=== PATIENT | male | born 2000 | race Caucasian/White ===

== ENCOUNTER 2020-07-11 14:27 | Outpatient (REF) | payer OTHER, SELFPAY ==
--- NOTE | 2020-07-11 14:44 | XR_ITS ---
EXAMINATION: XR SHOULDER, LEFT CLINICAL INFORMATION: Pain in left shoulder COMPARISON: None TECHNIQUE: AP, transscapular, transaxillary radiographs of the left shoulder FINDINGS: Glenohumeral and acromioclavicular joint spacing and alignment are normal in appearance. No arthropathic changes, dystrophic calcifications or fractures are identified. The visualized left ribs and lung are normal in appearance. XR/XR shoulder LT min 2V IMPRESSION: Normal left shoulder.
== END 2020-07-11 14:28 | disposition home or self-care (01) ==
LOC: HO.HOSX 14:27
PROVIDERS: Visit Provider Physician Assistant
DX: M25.512 Pain in left shoulder (principal)
CPT/HCPCS: 73030

== ENCOUNTER → 2020-08-01 13:54 | Outpatient (BNVA) | payer OTHER, SELFPAY | PROVIDERS: Visit Provider Physician Assistant ==

== ENCOUNTER → 2024-12-07 15:07 | Outpatient (BNVA) | payer OTHER, SELFPAY | PROVIDERS: Visit Provider Physician Assistant Medical | DX: S83.91XA Sprain of unspecified site of right knee, initial encounter (principal); W01.198A Fall on same level from slipping, tripping and stumbling with subsequent striking against other object, initial encounter | CPT/HCPCS: 73564; 99204 ==

== ENCOUNTER → 2024-12-11 10:20 | Outpatient (BNVA) | payer OTHER, SELFPAY | PROVIDERS: Visit Provider Internal Medicine | DX: M23.91 Unspecified internal derangement of right knee (principal); S83.91XA Sprain of unspecified site of right knee, initial encounter; W01.198A Fall on same level from slipping, tripping and stumbling with subsequent striking against other object, initial encounter | CPT/HCPCS: 99213 ==

== ENCOUNTER → 2024-12-18 11:17 | Outpatient (BNVA) | payer OTHER, SELFPAY | PROVIDERS: Visit Provider Internal Medicine | DX: M23.91 Unspecified internal derangement of right knee (principal) | CPT/HCPCS: 99213 ==

== ENCOUNTER → 2024-12-21 19:56 | Outpatient (BNV) | payer OTHER, SELFPAY | PROVIDERS: Visit Provider Specialist | DX: S83.271A Complex tear of lateral meniscus, current injury, right knee, initial encounter (principal) | CPT/HCPCS: 73721 ==

== ENCOUNTER 2024-12-21 19:57 | Outpatient (REF) | payer OTHER, SELFPAY ==
--- NOTE | ~2024-12-21 | MR_ITS ---
CLINICAL HISTORY: PERSISTANT PAIN,TWISTING INJURY WHILE FALLING MR right knee without gadolinium Comparison: 12/07/2024 Findings: There is a tear of the lateral collateral ligament complex. There is meniscocapsular separation with a parameniscal cyst. No acute fracture or pathologic bone lesion. No joint effusion. No tears of the cruciate or medial collateral ligaments. No disruption of the patellar retinacula or iliotibial band. Quadriceps, patellar, popliteus, and flexor tendons are intact. There are no meniscal tears. IMPRESSION: 1. Lateral collateral ligament complex tear with associated meniscocapsular separation. This document has been electronically signed by: Silvestre Rios MD on 12/23/2024 08:43:00
== END 2024-12-21 19:58 | disposition home or self-care (01) ==
LOC: HO.MRI 19:57
PROVIDERS: Visit Provider Internal Medicine
DX: M25.561 Pain in right knee (principal); S83.91XA Sprain of unspecified site of right knee, initial encounter
CPT/HCPCS: 73721

== ENCOUNTER → 2025-01-01 10:15 | Outpatient (BNVA) | payer OTHER, SELFPAY | PROVIDERS: Visit Provider Internal Medicine | DX: S83.91XA Sprain of unspecified site of right knee, initial encounter (principal); W01.198A Fall on same level from slipping, tripping and stumbling with subsequent striking against other object, initial encounter | CPT/HCPCS: 99213 ==

== ENCOUNTER 2025-01-24 09:39 | Outpatient (AMB) | payer OTHER, SELFPAY ==
--- NOTE | 2025-01-24 09:47 | A.OFFVIS_ITS ---
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 Patient was referred by work connection status post fall and twisting of knee injury. He has been attending physical therapy. Due to his persistent pain an MRI was ordered and obtained. Patient reports that he has completed physical therapy. His pain presents with bending motions such as squatting. He returned back to work today with sedentary restrictions. IMPRESSION: 1. Lateral collateral ligament complex tear with associated meniscocapsular separation. 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 He states he fell and twisted the knee. He was seen by the work connection and they obtained x-rays and sent him for an MRI. He states he also attended physical therapy and completed the therapy and feels there were significant improvement. He denies instability. He denies any locking or catching. He states the work connection did release him to return to work today on sedentary duties. 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 There is no swelling. He has full range of motion without crepitus. No joint line tenderness present. Negative Kathleen's. Negative Jaquan's. Negative dial test. Neurovascularly intact. Results Reviewed Results Reviewed: MRI right knee IMPRESSION: 1. Lateral collateral ligament complex tear with associated meniscocapsular separation. Assessment & Plan Assessment & Plan (1) Tear of LCL (lateral collateral ligament) of knee: Code(s): S83.429A - Sprain of lateral collateral ligament of unspecified knee, initial encounter Category: Medical Plan: We had a lengthy discussion about his injury and treatment options. Given he has no instability and is able to perform most activities without discomfort we will treat this conservatively with continued physical therapy for strength training and proprioceptive training/conditioning. Our goal is to get him back to work without restrictions. At this time he will return with no lifting pushing pulling or carrying greater than 5-10 lb. Limit stair climbing. I explained to the patient if there is any symptoms he begins to experience where it is sharp shooting pain with twisting or pivoting or catching and locking he needs to contact our office to discuss this further if it is limiting his ability to perform daily activities. Otherwise the patient will see us back as needed. Orders: Orders PT Evaluation and Treatment Today S83.429A - Sprain of lateral collateral ligament of unspecified knee, initial encounter Coding Level of Care Code Est Pt Level 3 (97184) Complex EM visit Add On G2211 Diagnoses Tear of LCL (lateral collateral ligament) of knee S83.429A
--- OUTSIDE RECORDS SUMMARY | 2025-01-24 10:11 | XMS_ITS | Continuity of Care Document ---
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 It does not include entries that were removed or entered in error. Problem Status Onset Date Problem Type Date of Resolution Comments Source Exposure to potentially hazardous substance Active Condition Sep 23, 2023 Entered By: BELLA GOMEZ Comment: DYLAN screening Snomed code connected 11/05/22 [place] [facility] [place] [facility] Major depressive disorder [facility] [place] [facility] Allergies, Adverse Reactions, Alerts Combined list of allergies from Department of Defense and Veterans Affairs facilities. It does not include entries that were removed or entered in error. Substance Category Reaction Severity Reaction type Status Date Reported Comments Source No Known Allergies Drug allergy (disorder) active 05/03/2018 [facility] [place] Immunizations Combined list of available immunizations from the Department of Defense and Veterans Affairs facilities. Immunization Series Date Given Administered By Site Reaction Lot Number CVX Code Drug Educational Coordinator Status Comments Source HPV9 1 2022 ANAIS WU LEFT DELTO ID [id number] complet ed [facility]MIN[facility]E [facility] [place] [facility] HEP A, ADULT 2 2019 52 complet ed HISTORICA L INFORMATI ON - [facility], [facility] hepatitis A vaccine, adult dosage 0 2019 52 () Not Given hepatitis A vaccine, adult dosage [facility] Influenza, injectable, quadrivalent, preservative free 0 2018 [id number] 150 Seqirus (SEQ) complet ed Influenza , injectabl e, quadrival ent, preservat ilene free DoD ANTHRAX 6 2018 24 complet ed HISTORICA L INFORMATI ON - FROM OTHER [facility], [facility] anthrax vaccine 7 2018 UNK 24 [employer]gent [employer] [place] ([facility]) complet ed anthrax vaccine DoD TYPHOID, VICPS 2018 LEFT ARM 101 complet ed HISTORICA L INFORMATI ON - FROM OTHER REGISTRY, JLV Lot#: [id number] Mfr: SANOFI PASTEUR [facility] HEP A, ADULT 1 2018 52 complet ed HISTORICA L INFORMATI ON - FROM OTHER REGISTRY, JLV Lot#: [id number] Mfr: [employer] [facility] hepatitis A vaccine, adult dosage 1 2018 JACQUELYN HUBER [id number] Merck (MSD) complet ed hepatitis A vaccine, adult dosage DoD typhoid Vi capsular polysaccharid e vaccine 1 2018 JACQUELYN HUBER [id number] Sanofi Pasteur ([facility]) complet ed typhoid Vi capsular polysacch aride vaccine DoD M/R 2 2018 04 complet ed HISTORICA L INFORMATI ON - FROM OTHER REGISTRY, JLV [facility] measles and rubella virus vaccine 0 2018 04 () Not Given measles and rubella virus vaccine DoD Influenza, injectable, quadrivalent, preservative free 0 2017 [id number] 150 SmithKline (SKB) complet ed Influenza , injectabl e, quadrival ent, preservat ilene free DoD ANTHRAX 5 2017 24 complet ed HISTORICA L INFORMATI ON - FROM OTHER REGISTRY, JLV Lot#: [id number] [facility] anthrax vaccine 5 2017 [id number] Emergent [facility] ([facility]) complet ed anthrax vaccine DoD measles and rubella virus vaccine 0 2017 04 () Not Given measles and rubella virus vaccine DoD MMR 2017 03 complet ed HISTORICA L INFORMATI ON - FROM OTHER REGISTRY, jlv Lot#: [id number] Mfr: [employer] [facility] measles, mumps and rubella virus vaccine 1 2017 [id number] Merck (MSD) complet ed measles, mumps and rubella virus vaccine DoD [place] Encephalitis vaccine for intramuscular administratio n 3 2017 [id number] 134 [employer] (INT) complet ed [place] Encephali tis vaccine for intramusc ular administr ation [facility] MOROCCAN ENCEPHALITIS IM 3 2017 134 complet ed HISTORICA L INFORMATI ON - FROM OTHER REGISTRY, jlv Lot#: [id number] Mfr: INTERCELL [facility] [place] [facility] ANTHRAX 4 2017 24 complet ed HISTORICA L INFORMATI ON - FROM OTHER REGISTRY, JLV Lot#: [id number] [facility] [place] [facility] anthrax vaccine 4 2017 [id number] [employer] Sam (MIP) complet ed anthrax vaccine DoD Influenza, injectable, quadrivalent, preservative free 0 [id number] Seqirus (SEQ) comple t ed Influenza , injectabl e, quadrival ent, preservat ilene free DoD ANTHRAX 3 2016 24 complet ed HISTORICA L INFORMATI ON - FROM OTHER REGISTRY, JLV Lot#: [id number] [facility] [place] [facility] anthrax vaccine 3 2016 [id number] [employer] [place] (MIP) complet ed anthrax vaccine DoD MOROCCAN ENCEPHALITIS IM 2 2016 134 complet ed HISTORICA L INFORMATI ON - FROM OTHER REGISTRY, JLV Lot#: [id number] Mfr: INTERCELL [facility] [place] [facility] Central African Encephalitis vaccine for intramuscular administratio n 2 2016 [id number] 134 [employer] (INT) complet ed [place] Encephali tis vaccine for intramusc ular administr ation [facility] HEP B, ADOLESCENT OR PEDIATRIC 2 2016 08 complet ed HISTORICA L INFORMATI ON - FROM OTHER REGISTRY, JLV Lot#: [id number] [facility] [place] [facility] MOROCCAN ENCEPHALITIS IM 1 2016 134 complet ed HISTORICA L INFORMATI ON - FROM OTHER REGISTRY, JLV Lot#: [id number] Mfr: INTERCELL [facility] [place] [facility] VARICELLA 2 2016 21 complet ed HISTORICA L INFORMATI ON - FROM OTHER REGISTRY, JLV [facility] [place] [facility] [facility] hepatitis B vaccine, pediatric or pediatric/ado lescent dosage 3 2016 [id number] SmithKline (SKB) complet ed hepatitis B vaccine, pediatric or pediatric /adolesce nt dosage DoD varicella virus vaccine 0 2016 21 () Not Given varicella virus vaccine DoD [place] Encephalitis vaccine for intramuscular administratio n 1 2016 [id number] 134 [facility] [employer] (INT) complet ed [place] Encephali tis vaccine for intramusc ular administr ation DoD ANTHRAX 2 2016 24 complet ed HISTORICA L INFORMATI ON - FROM OTHER REGISTRY, JLV Lot#: [id number] [facility] [place] [facility] [facility] anthrax vaccine 2 2016 [id number] 24 [employer] [place] (MIP) complet ed anthrax vaccine DoD ANTHRAX 1 2016 24 complet ed HISTORICA L INFORMATI ON - FROM OTHER REGISTRY, JLV Lot#: [id number] [facility] [place] [facility] HEP B, ADULT 1 2016 43 complet ed HISTORICA L INFORMATI ON - FROM OTHER REGISTRY, JLV Lot#: [id number] [facility] [place] [facility] TD(ADULT) UNSPECIFIED FORMULATION 2016 139 complet ed HISTORICA L INFORMATI ON - FROM OTHER REGISTRY, JLV Lot#: [id number] [facility] [place] [facility] VACCINIA (SMALLPOX) 2016 75 complet ed HISTORICA L INFORMATI ON - FROM OTHER REGISTRY, JLV Lot#: [id number] [facility] [place] [facility] anthrax vaccine 1 2016 [id number] 24 [employer] Sam (MIP) complet ed anthrax vaccine DoD typhoid vaccine, parenteral, other than acetone-kille d, dried 1 2016 [id number] 41 [employer] (BPC) complet ed typhoid vaccine, parentera l, other than acetone-k illed, dried DoD hepatitis B vaccine, adult dosage 1 2016 [id number] 43 SmithKline (SKB) complet ed hepatitis B vaccine, adult dosage DoD vaccinia (smallpox) vaccine 0 2016 [id number] 75 (TEENA) complet ed vaccinia (smallpox ) vaccine DoD M/R 2015 04 complet ed HISTORICA L INFORMATI ON - FROM OTHER REGISTRY, [facility] VARICELLA 2015 21 complet ed HISTORICA L INFORMATI ON - FROM OTHER REGISTRY, [facility] measles and rubella virus vaccine 0 2015 04 () Not Given measles and rubella virus vaccine [facility] varicella virus vaccine 0 2015 21 () Not Given varicella virus vaccine [facility] hepatitis A vaccine, adult dosage 0 2015 52 () Not Given hepatitis A vaccine, adult dosage DoD hepatitis B vaccine, pediatric or pediatric/ado lescent dosage 1 2015 JORJE DUDLEY [id number] [facility] ([facility]) complet ed hepatitis B vaccine, pediatric or pediatric /adolesce nt dosage [facility] poliovirus vaccine, inactivated 1 2015 JORJE DUDLEY [id number] Sanofi Pasteur ([facility]) complet ed polioviru s vaccine, inactivat ed [facility] Influenza, seasonal, injectable, preservative free 1 2015 JORJE DUDLEY [id number] Seqirus (SEQ) complet ed Influenza , seasonal, injectabl e, preservat ilene free DoD tuberculin skin test; purified protein derivative solution, intradermal 1 2015 Unknown, Provider [id number] Sanofi Pasteur ([facility]) complet ed tuberculi n skin test; purified protein derivativ e solution, intraderm al [facility] tetanus toxoid, reduced diphtheria toxoid, and acellular pertu is vaccine, adsorbed 1 2015 Unknown, Provider [id number] [facility] ([facility]) complet ed tetanus toxoid, reduced diphtheri a toxoid, and acellular pertussis vaccine, adsorbed DoD meningococcal oligosacchari de (groups A, C, Y and W-135) diphtheria toxoid conjugate vaccine (MCV4O) 1 2015 Unknown, Provider [id number] Sanofi Pasteur ([facility]) complet ed meningoco ccal oligosacc haride (groups A, C, Y and W-135) diphtheri a toxoid conjugate vaccine (MCV4O) [facility] Adenovirus, type 4 and type 7, live, oral 1 2015 Unknown, Provider [id number] [address] [place] [address] Laboratories ([facility]) complet ed Adenoviru s, type 4 and type 7, live, oral DoD Results Combined list of recent chemistry, hematology and other laboratory results from Department of Defense and Veterans Affairs, ranging from 15 months to all on record, depending upon the facility. Order Name Results Value Reference Range Date Interpretation Specimen Comments Source HEPATITI S A ANTIBODY (IGG) HEPATITIS A VIRUS IGG AB [PRESENCE] IN SERUM REACTIVE 02/05 Specimen Type: SERUM Comment: Hep A IgG: A 'Reactive' result indicates previous exposure to Hepatitis A virus through infection or vaccination . Ordering Provider: Zita HOOKER Report Released Date/Time: Jan 27, 2023 11:07 AM Reporting Lab: [address] [address] Performing Lab: [address] [address] [facility] HEPATITI S B SURFACE ANTIBODY (HBsAb)- WH HEPATITIS B VIRUS SURFACE AB [PRESENCE] IN SERUM BY IMMUNOASSA Y REACTIVE 02/05 Specimen Type: SERUM Comment: A 'Reactive' result indicates HBsAb results >/= 12.0 mIU/mL and immunity to HBV infection. Ordering Provider: Zita HOOKER Report Released Date/Time: Jan 27, 2023 11:07 AM Reporting Lab: [address] [address] Performing Lab: [facility] [address] [facility] [address] [facility] SYPHILIS ABS W/RFLX REAGIN AB [PRESENCE] IN SERUM BY RPR Non Reactive 02/05 Specimen Type: SERUM Comment: No laboratory evidence of syphilis infection. If recent exposure is suspected, re-draw sample in 2-4 weeks and repeat algorithm. Testing performed by T. pallidum specific immunoassay . Ordering Provider: Zita HOOKER Report Released Date/Time: Jan 27, 2023 11:07 AM Reporting Lab: [address] [address] Performing Lab: [facility]ITALRL TRN [facility]ITAL[facility]ETS [facility] [address] [facility] [address] [facility]ITALRBULL[facility] HOSPITALN [facility] CT/GC DNA PANEL(IN -HOUSE) NEISSERIA GONORRHOEA E DNA [PRESENCE] IN URINE BY MARI WITH PROBE DETECTION NOT DETECTED 02/05 Specimen Type: URINE Comment: Test performed on the Cepheid Genexpert. A negative test results does not exclude the possibility of infection because results may be affected by improper specimen collection, concurrent antibiotic therapy, or the number of organisms in the specimen which may be below the sensitivity of the test. Ordering Provider: Zita HOOKER Report Released Date/Time: Jan 27, 2023 11:07 AM Reporting Lab: [facility]OSPITALRL [facility]ITALUSE[facility] [address] [facility] [facility] [address] Performing Lab: [facility] [address] [facility] [address] [facility] CT/GC DNA PANEL(IN -HOUSE) CHLAMYDIA TRACHOMATI S DNA [PRESENCE] IN URINE BY MARI WITH PROBE DETECTION NOT DETECTED 02/05 Specimen Type: URINE Comment: Test performed on the Cepheid Genexpert. A negative test results does not exclude the possibility of infection because results may be affected by improper specimen collection, concurrent antibiotic therapy, or the number of organisms in the specimen which may be below the sensitivity of the test. Ordering Provider: Zita HOOKER Report Released Date/Time: Jan 27, 2023 11:07 AM Reporting Lab: [facility]ITALRL TRN [facility]PITALUSETS [facility] [address] [facility] [facility] [address] Performing Lab: [facility]OSPITALRCOMMUNITY HOSPITALTRN [facility]ITALUSE[address] [address] [facility]OSPITALRBULLOCK COUNTY HOSPITALN [facility]USE [facility] BASIC METABOLI C PANEL (fasting ) UREA NITROGEN [MASS/VOLU ME] IN SERUM OR PLASMA 17 mg/dL 7 - 25 02/05 Specimen Type: SERUM No comment entered. Ordering Provider: Zita HOOKER Report Released Date/Time: Jan 27, 2023 11:07 AM Reporting Lab: [facility] [place] [facility] [address] [facility] [address] Performing Lab: [place] [facility] [facility] [address] [facility] [facility] [address] [place] [facility] [facility] [facility] BASIC METABOLI C PANEL (fasting ) GLUCOSE [MASS/VOLU ME] IN SERUM OR PLASMA 107 mg/dL 65 - 100 02/05 H Specimen Type: SERUM No comment entered. Ordering Provider: Zita HOOKER Report Released Date/Time: Jan 27, 2023 11:07 AM Reporting Lab: [place] [facility] [place] [facility] [address] [facility] [facility] [address] Performing Lab: [place] [facility] [address] [facility]OSPITALRL WSTRN [place] [facility] BASIC METABOLI C PANEL (fasting ) SODIUM [MOLES/VOL UME] IN SERUM OR PLASMA 138 mmol/L 135 - 145 02/05 Specimen Type: SERUM No comment entered. Ordering Provider: Zita HOOKER Report Released Date/Time: Jan 27, 2023 11:07 AM Reporting Lab: [facility]OSPITALRL [place] [place] [address] [address] Performing Lab: [place] [facility] [address] [address] [facility]OSPITALRL WSTRN [place] [facility] BASIC METABOLI C PANEL (fasting ) POTASSIUM [MOLES/VOL UME] IN SERUM OR PLASMA 3.8 mmol/L 3.5 - 5.0 02/05 Specimen Type: SERUM No comment entered. Ordering Provider: Zita HOOKER Report Released Date/Time: Jan 27, 2023 11:07 AM Reporting Lab: [place] [facility] [place] [facility] [address] [facility] [address] Performing Lab: [facility] [place] [place] [facility] [address] [facility] [address] [facility]RL [facility] [place] [facility] BASIC METABOLI C PANEL (fasting ) CHLORIDE [MOLES/VOL UME] IN SERUM OR PLASMA 103 mmol/L 100 - 110 02/05 Specimen Type: SERUM No comment entered. Ordering Provider: Zita HOOKER Report Released Date/Time: Jan 27, 2023 11:07 AM Reporting Lab: [facility]OSPITALRCOMMUNITY HOSPITALTRN [address] [address] Performing Lab: [facility]OSPITALRBULLOCK COUNTY HOSPITALN [address] [address] [facility] BASIC METABOLI C PANEL (fasting ) CARBON DIOXIDE, TOTAL [MOLES/VOL UME] IN SERUM OR PLASMA 23 meq/L 20 - 30 02/05 Specimen Type: SERUM No comment entered. Ordering Provider: Zita HOOKER Report Released Date/Time: Jan 27, 2023 11:07 AM Reporting Lab: [facility] [address] [address] Performing Lab: [facility]OSPITALRBULLOCK COUNTY HOSPITALN [address] [address] [facility]ITALRBULLOCK COUNTY HOSPITALN [facility] BASIC METABOLI C PANEL (fasting ) CREATININE [MASS/VOLU ME] IN SERUM OR PLASMA 1.12 mg/dL 0.50 - 1.40 02/05 Specimen Type: SERUM No comment entered. Ordering Provider: Zita HOOKER Report Released Date/Time: Jan 27, 2023 11:07 AM Reporting Lab: [facility]OSPITALRBULLOCK COUNTY HOSPITALN [address] [address] Performing Lab: [facility]OSPITALRCOMMUNITY HOSPITALTRN [address] [address] [facility] BASIC METABOLI C PANEL (fasting ) GLOMERULAR FILTRATION RATE/1.73 SQ M.PREDICTE D [VOLUME RATE/AREA] IN SERUM, PLASMA OR BLOOD BY CREATININE -BASED FORMULA (CKD-EPI) >90mL/mi n 60 02/05 Specimen Type: SERUM No comment entered. Ordering Provider: Zita HOOKER Report Released Date/Time: Jan 27, 2023 11:07 AM Reporting Lab: [facility]PITALRCOMMUNITY HOSPITALTRN [address] [address] Performing Lab: [facility] [place] [facility] [address] [address] [place] [facility] [place] [facility] LIVER FUNCTION PROTEIN [MASS/VOLU ME] IN SERUM OR PLASMA 7.5 g/dL 6.0 - 8.3 02/05 Specimen Type: SERUM No comment entered. Ordering Provider: Zita HOOKER Report Released Date/Time: Jan 27, 2023 11:07 AM Reporting Lab: [facility] [place] [facility] [address] [facility] [facility] [address] Performing Lab: [facility] [place] [place] [facility] [address] [facility] [address] [place] [facility] [facility] LIVER FUNCTION ALBUMIN [MASS/VOLU ME] IN SERUM OR PLASMA 4.4 g/dL 3.5 - 5.0 02/05 Specimen Type: SERUM No comment entered. Ordering Provider: Zita HOOKER Report Released Date/Time: Jan 27, 2023 11:07 AM Reporting Lab: [facility] [place] [facility] [address] [facility] [facility] [address] Performing Lab: [facility] [place] [facility] [address] [address] [facility] [place] [facility] LIVER FUNCTION ALKALINE PHOSPHATAS E [ENZYMATIC ACTIVITY/V OLUME] IN SERUM OR PLASMA 65 U/L 40 - 150 02/05 Specimen Type: SERUM No comment entered. Ordering Provider: Zita HOOKER Report Released Date/Time: Jan 27, 2023 11:07 AM Reporting Lab: [facility] [place] [place] [facility] [address] [facility] [facility] [address] Performing Lab: [facility] [place] [facility] [address] [facility] [address] [place] [facility] [place] [facility] LIVER FUNCTION ASPARTATE AMINOTRANS FERASE [ENZYMATIC ACTIVITY/V OLUME] IN SERUM OR PLASMA 24 U/L 5 - 34 02/05 Specimen Type: SERUM No comment entered. Ordering Provider: Zita HOOKER Report Released Date/Time: Jan 27, 2023 11:07 AM Reporting Lab: [facility] [place] [facility] [address] [facility] [facility] [address] Performing Lab: [facility] [place] [facility] [address] [facility] [address] [facility] [place] [facility] LIVER FUNCTION ALANINE AMINOTRANS FERASE [ENZYMATIC ACTIVITY/V OLUME] IN SERUM OR PLASMA 30 U/L 02/05 Specimen Type: SERUM No comment entered. Ordering Provider: Zita HOOKER Report Released Date/Time: Jan 27, 2023 11:07 AM Reporting Lab: [facility] [place] [facility] [address] [address] Performing Lab: [facility] [place] [facility] [address] [address] [facility] [place] [facility] LIVER FUNCTION BILIRUBIN. TOTAL [MASS/VOLU ME] IN SERUM OR PLASMA 0.5 mg/dL 0.2 - 1.2 02/05 Specimen Type: SERUM No comment entered. Ordering Provider: Zita HOOKER Report Released Date/Time: Jan 27, 2023 11:07 AM Reporting Lab: [facility] [place] [place] [facility] [address] [address] Performing Lab: [facility] [place] [place] [facility] [address] [address] [facility] [place] [facility] LIPID PANEL FASTING CHOLESTERO L [MASS/VOLU ME] IN SERUM OR PLASMA 164 mg/dL 02/05 Specimen Type: SERUM No comment entered. Ordering Provider: Zita HOOKER Report Released Date/Time: Jan 27, 2023 11:07 AM Reporting Lab: [facility] [place] [facility] [address] [address] Performing Lab: [facility] [place] [facility] [address] [address] [place] [facility] [place] [facility] LIPID PANEL FASTING TRIGLYCERI DE [MASS/VOLU ME] IN SERUM OR PLASMA 194 mg/dL 0 - 150 02/05 H Specimen Type: SERUM No comment entered. Ordering Provider: Zita HOOKER Report Released Date/Time: Jan 27, 2023 11:07 AM Reporting Lab: [facility] [place] [place] [facility] [address] [address] Performing Lab: [facility] [place] [facility] [address] [address] [place] [facility] [place] [facility] LIPID PANEL FASTING CHOLESTERO L IN LDL [MASS/VOLU ME] IN SERUM OR PLASMA BY CALCULATIO N 62 mg/dL 0 - 129 02/05 Specimen Type: SERUM No comment entered. Ordering Provider: Zita HOOKER Report Released Date/Time: Jan 27, 2023 11:07 AM Reporting Lab: [facility] [place] [facility] [address] [address] Performing Lab: [facility] [place] [facility] [address] [address] [place] [facility] [facility] LIPID PANEL FASTING CHOLESTERO L.TOTAL/CH OLESTEROL IN HDL [MASS RATIO] IN SERUM OR PLASMA 2.6 02/05 Specimen Type: SERUM No comment entered. Ordering Provider: Zita HOOKRE Report Released Date/Time: Jan 27, 2023 11:07 AM Reporting Lab: [facility] [place] [facility] [address] [address] Performing Lab: [facility] [place] [facility] [address] [address] [place] [facility] [place] [facility] LIPID PANEL FASTING CHOLESTERO L IN HDL [MASS/VOLU ME] IN SERUM OR PLASMA 63 mg/dL 40 - 60 02/05 H Specimen Type: SERUM No comment entered. Ordering Provider: Zita HOOKER Report Released Date/Time: Jan 27, 2023 11:07 AM Reporting Lab: [facility] [place] [facility] [address] [address] Performing Lab: [facility] [place] [facility] [address] [address] [facility]ITALRL WSTRN [place] [facility] HIV 1&2 Ag/Ab SCREEN HIV 1+2 AB+HIV1 P24 AG [PRESENCE] IN SERUM OR PLASMA BY IMMUNOASSA Y NON-REAC TIVE 02/05 Specimen Type: SERUM No comment entered. Ordering Provider: Zita HOOKER Report Released Date/Time: Jan 27, 2023 11:07 AM Reporting Lab: [place] [facility] [address] [address] Performing Lab: [place] [facility] [address] [address] [place] [facility] [facility] [facility] HEPATITI S C ANTIBODY (HCV)-AR C HEPATITIS C VIRUS AB [PRESENCE] IN SERUM NON-REAC TIVE 02/05 Specimen Type: SERUM Comment: Hep C Ab: No HCV antibody detected. If recent infection is suspected or other evidence suggests HCV infection, consider HCV nucleic acid testing Ordering Provider: Zita HOOKER Report Released Date/Time: Jan 27, 2023 11:07 AM Reporting Lab: [place] [facility] [facility] [facility] [address] [address] Performing Lab: [place] [facility] [address] [address] [facility] TSH THYROTROPI N [UNITS/VOL UME] IN SERUM OR PLASMA 1.29 u[IU]/mL 0.35 - 5.00 02/05 Specimen Type: SERUM No comment entered. Ordering Provider: Zita HOOKER Report Released Date/Time: Jan 27, 2023 11:07 AM Reporting Lab: [place] [facility] [address] [address] Performing Lab: [facility] [address] [address] [facility] Encounters Combined list of: 1) Encounters from Department of Veterans Affairs facilities going backup to the last 18 months, not all VA inpatient encounters are included; 2) Encounters from the Department of Defense facilities going backup to 280 months. Location Location Details Encounter Type Encounter Number Reason For Visit Attending Provider ADM Date DC Date Status Disposition Source [facility] Hearing Conservat ion) OUTPATIENT [id number] [place]RA[place] A 03/11 Released w/o Limitations [facility] [facility] D Hearing Conserv ation) [facility] Optometry Clinic) OUTPATIENT [id number] VERNONJONO KEIRA A 03/11 Released w/o Limitations [facility] [place] [facility] Optomet ry Clinic) [facility] [place] [facility] Rec[employer] Medical Process) OUTPATIENT [id number] initial inproce ssign GRAYSON VAZQUEZ 03/16 Released w/o Limitations [facility] [place] [facility] D Rec[employer] Medical Process ) [facility] n([facility] Rec[employer] Medical Process) OUTPATIENT [id number] 2ND VISIT FOR INPROCE SSING BRITTANY CARLOS N 04/08 Released w/o Limitations [facility] D Rec[employer] Medical [employer] ) [facility] [id number] predepl oyment exam BABITA MONTANEZ 02/08 Released w/o Limitations [facility] [place] Team 1) OUTPATIENT [id number] Notes Entered by: HO LEDEZMA 20 Sep 2017 1550 ------- ------- ------- ------- -- Immuniz ation 09/04 CAROLYN GE 09/20 [place] Limitations [place]Zeb [facility] Team 1) [place] [facility] Team 1) OUTPATIENT [id number] Notes Entered by: Coco HOOKS 02 Dec 2017 1057 ------- ------- ------- ------- -- IMMS 09/04 UZAIR LAKHANI 12/02 [place]ased [place]/o Limitations [place]Zeb [facility] Team 1) [facility] [place] [facility] [place] [id number] annual eye exam KELSEY MCKINNEY 01/20 Released w/o Limitations [facility] [place] [facility] [place] OUTPATIENT [id number] Notes Entered by: Padmini LAN 21 Jan 2018 1329 ------- ------- ------- ------- -- Laser Refract ilene Brief VIOLETTE SANCHEZANG 01/21 Released w/o Limitations [facility] [place] [place] [employer] [facility] OUTPATIENT [id number] Notes Entered by: ANAMARIA ORELLANA 03 May 2018 0022 ------- ------- ------- ------- -- follow up AYANA LANDIN 05/03 Released w/o Limitations [facility] [place] [facility] [employer] [facility] [employer] [place] OUTPATIENT [id number] Notes Entered by: ANAMARIA ORELLANA 03 May 2018 1431 ------- ------- ------- ------- -- ABSCESS AYANA LANDIN 05/04 Released w/o Limitations [facility] [employer] [facility] [facility] [employer] [facility] [facility] [employer] [place]PATIENT [id number] Notes Entered by: JACQUELYN HUBER 09 Jun 2018 0833 ------- ------- ------- ------- -- LEONARDA SMITH 06/09 Released w/o Limitations [facility] [facility] [employer] [facility] [id number] Notes Entered by: Ruy RICE 28 Sep 2018 1232 ------- ------- ------- ------- -- PHA LEONARDA DOWNS 09/28 Released w/o Limitations [facility] [facility] Team 1) OUTPATIENT [id number] Notes Entered by: GRAYSON RUBY 03 Jan 2019 1310 ------- ------- ------- ------- -- IMMS- HEP A, TYPHOID KEMAL VELÁSQUEZ 01/03 Released w/o Limitations [facility] ([facility] Team 1) [facility]( ans Hearing Conservat ion) OUTPATIENT [id number] 503 RILEY DEAN 04/07 Released w/o Limitations [facility] ([place] [facility]) [facility]( ans Hearing Conservat ion) OUTPATIENT [id number] TAMMY JASON 04/12 Released w/o Limitations [facility] ([place] [facility]) [facility] OUTPATIENT [id number] Notes Entered by: CESAR SAGE CHARU 20 Jun 2019 0906 ------- ------- ------- ------- -- 503ad REGINO Freire 06/20 Released w/o Limitations [facility] [place] [facility] [id number] Notes Entered by: GRETCHEN WILSON 01 Aug 2019 1331 ------- ------- ------- ------- -- AYANA GONZALEZ 08/01 [place] Limitations [facility] [facility] OUTPATIENT [id number] Notes Entered by: CESAR SAGE CHARU 06 Sep 2019 0917 ------- ------- ------- ------- -- 503ad term REGINO PATTERSON 09/05 [place]ased [place] Limitations [facility] [facility] OUTPATIENT [id number] Notes Entered by: Brian ABADSHA 10 Oct 2019 1023 ------- ------- ------- ------- -- 503AD;WALEKR ADLER 10/09 [place] Limitations [facility] [facility] [id number] SpecOrd erFinal [id number] BERGER[place] SKY NAMRATA 11/20 [place] Limitations [facility] [facility] [id number] Final KACI Orellana 11/29 [place]ased [place] Limitations [facility] [facility]IENT [id number] REE/CL DESTINI DOE 11/30 [place]ased [place]o Limitations [facility] [facility] En[facility] [id number] 01/09 [facility] Out[facility] Encounter [id number] 02/07 [facility] Procedures Combined list of: 1) Procedures from Department of Veterans Affairs facilities going back up to thelast 18 months, not all VA non-surgical procedures are included; 2) All procedures from the Department of Defense facilities. Procedure Procedure Type Code Date Perfomer Comments [facility] e PURE TONE AUDIOMETRY (THRESHOLD), AUTOMATED; AIR ONLY 04/12/20 19 DoD PURE TONE AUDIOMETRY (THRESHOLD), AUTOMATED; AIR ONLY 04/07/20 19 DoD IMMUNIZATION ADMINISTRATION (INCLUDES PERCUTANEOUS, INTRADERMAL, SUBCUTANEOUS, OR INTRAMUSCULAR INJECTIONS); EACH ADDITIONAL VACCINE (SINGLE OR COMBINATION VACCINE/TOXOID) 01/04/20 19 DoD IMMUNIZATION ADMINISTRATION (INCLUDES PERCUTANEOUS, INTRADERMAL, SUBCUTANEOUS, OR INTRAMUSCULAR INJECTIONS); 1 VACCINE (SINGLE OR COMBINATION VACCINE/TOXOID) 12/03/19 18 [facility] ANTHRAX VACCINE, FOR SUBCUTANEOUS OR INTRAMUSCULAR USE 09/21/19 18 DoD THERAPEUTIC, PROPHYLACTIC, OR DIAGNOSTIC INJECTION (SPECIFY SUBSTANCE OR DRUG); SUBCUTANEOUS OR INTRAMUSCULAR 04/08/20 16 [facility] SKIN TEST; TUBERCULOSIS, INTRADERMAL 03/13/20 16 [facility] SCREENING TEST OF VISUAL ACUITY, QUANTITATIVE, BILATERAL 03/11/20 16 [facility] PHYS/OTH QUALIFIED HEALTH STRAPPING MACHINE TENDER QUALIFIED,EDUCATION, TRAIN,LICENSURE/REGU LATION (WHEN APPLICABLE) EDUC SER RENDERED TO PATS IN A GRP SETTING (EG,,OBESITY ,OR DIABETIC INSTRUCT) 03/11/20 16 DoD PRESCRIPTION OF OPTICAL AND PHYSICAL CHARACTERISTICS OF AND FITTING OF CONTACT LENS, WITH MEDICAL SUPERVISION OF ADAPTATION; CORNEAL LENS, BOTH EYES, EXCEPT FOR APHAKIA 12/01/19 DoD FITTING OF SPECTACLES, EXCEPT FOR APHAKIA; MONOFOCAL 11/21/19 20 [facility] PURE TONE AUDIOMETRY (THRESHOLD), AUTOMATED; AIR ONLY 10/10/19 20 [facility] PATIENT EDUCATION, NOT OTHERWISE CLASSIFIED, NON-PHYSICIAN PROVIDER, INDIVIDUAL, PER SESSION 09/06/19 DoD PATIENT EDUCATION, NOT OTHERWISE CLASSIFIED, NON-PHYSICIAN PROVIDER, INDIVIDUAL, PER SESSION 06/20/20 19 [facility] PHYS/OTH QUALIFIED HEALTH STRAPPING MACHINE TENDER QUALIFIED,EDUCATION, TRAIN,LICENSURE/REGU LATION (WHEN APPLICABLE) EDUC SER RENDERED TO PATS IN A GRP SETTING (EG,,OBESITY ,OR DIABETIC INSTRUCT) 01/22/20 18 DoD FITTING OF SPECTACLES, EXCEPT FOR APHAKIA; MONOFOCAL 01/21/20 18 DoD FITTING OF SPECTACLES, EXCEPT FOR APHAKIA; MONOFOCAL 02/09/20 17 DoD Immunization Administration One Vaccine Immunization Administration One Vaccine 51928 01/04/20 19 JACQUELYN HUBER [facility] Immunization Administration Each Additional Vaccine Immunization Administration Each Additional Vaccine 35238 01/04/20 19 MANOJWONG JACQUELYN ARREOLA [facility] Hepatitis A Vaccine Adult Dosage (Intramuscular Use) Hepatitis A Vaccine Adult Dosage (Intramuscular Use) 83546 01/04/20 19 JACQUELYN HUBER Hep A (Adult); Series #: 1; 1.0 mL; IM; Left Arm; Mfg: Merck; Lot: [id number]. EXP; SEP 22 [facility] Typhoid Vaccine Vi Capsular Polysaccharide, For Intramus Use Typhoid Vaccine Vi Capsular Polysaccharide, For Intramus Use 00800 01/04/20 JACQUELYN HUBER Typhoid, ViCPs; Series #: 1; .5 mL; IM; Left Arm; Mfg: Sanofi Pasteur; Lot: [id number]. EXP; 19 MAR 2020 [facility] -Supervised Group Educational Services -Supervised Group Educational Services 69495 01/23/20 18 CLAIR HAHN [facility] Determination Of Refractive State Determination Of Refractive State 98861 01/21/20 18 ERIKA SQUIRES [facility] [facility] Fitting Monofocals (Not For Aphakia) [facility] Fitting Monofocals (Not For Aphakia) 66276 01/21/20 18 ERIKA SQUIRES [facility] Ophthalmological Prior Patient Start Comprehensive Care Ophthalmological Prior Patient Start Comprehensive Care [id number] 01/21/20 18 ERIKA SQUIRES [facility] Vaccines Viral Central African Encephalitis Inactivated, Intramuscular Vaccines Viral Central African Encephalitis Inactivated, Intramuscular 43854 12/03/19 18 RANDY HOOKS [facility] Immunization Administration One Vaccine Immunization Administration One Vaccine 29028 12/03/19 18 RANDY HOOKS [facility] Immunization Administration One Vaccine Immunization Administration One Vaccine 47710 09/21/19 18 HO DOMINGUEZ [facility] [employer] Fitting Monofocals (Not For Aphakia) [employer] [facility] Fitting Monofocals (Not For Aphakia) 19293 02/09/20 17 BABITA MONTANEZ Determination Of Refractive State Determination Of Refractive State 07574 02/09/20 17 BABITA MONTANEZ Ophthalmological New Patient Start Comprehensive Care Ophthalmological New Patient Start Comprehensive Care 75213 02/09/[address] Supervised Injection Intramuscular Antibiotic Supervised Injection Intramuscular Antibiotic 96791 04/08/20 16 JORJE DUDLEY [facility] Influenza Split Virus Vacc Age 3+ Years IM Preservative Free 04/08/20 16 JORJE DUDLEY [facility] Hepatitis B Vaccine (Active); [place] To 11 Years Hepatitis B Vaccine (Active); To 11 Years 33834 04/08/20 16 JORJE DUDLEY Hep B, adolescent or pediatric; Series #: 1; .5 mL; IM; Right Thigh; Mfg: [employer]; Lot: [id number]. [facility] Vaccines Viral Polio, Inactivated (Salk) Vaccines Viral Polio, Inactivated (Salk) 22687 04/08/20 16 JORJE DUDLEY IPV; Series #: 1; .5 mL; IM; Right Thigh; Mfg: Sanofi Pasteur; Lot: [id number]. [facility] Immunization Administration One Vaccine Immunization Administration One Vaccine 35718 04/08/20 16 [facility] Immunization Administration Each Additional Vaccine Immunization Administration Each Additional Vaccine 33563 04/08/20 16 [facility] Skin Test Anergy Tuberculin Intradermal Skin Test Anergy Tuberculin Intradermal 02239 03/16/20 16 [facility] Immunization Administration One Vaccine Immunization Administration One Vaccine 17551 03/16/20 16 [facility] Immunization Administration Each Additional Vaccine Immunization Administration Each Additional Vaccine 84059 03/16/20 16 [facility] Immunization Admin Intranasal / Oral Each Additional Vaccine Immunization Admin Intranasal / Oral Each Additional Vaccine 57600 03/16/20 16 [facility] Vaccines Adenovirus Type 4 Live, For Oral Use Vaccines Adenovirus Type 4 Live, For Oral Use 78334 03/16/20 16 [facility] Vaccines Adenovirus Type 7 Live, For Oral Use Vaccines Adenovirus Type 7 Live, For Oral Use 31244 03/16/20 16 [facility] Tdap Vaccine Tdap Vaccine 37694 03/16/20 16 [facility] Venipuncture Venipuncture 86351 03/16/20 16 [facility] Supervised Injection Intramuscular Antibiotic Supervised Injection Intramuscular Antibiotic 18861 03/16/20 16 [facility] Screening Test Of Visual Acuity, Quantitative, Bilateral Screening Test Of Visual Acuity, Quantitative, Bilateral 92888 03/11/20 16 GILMA LOGAN [facility] Fitting Monofocals (Not For Aphakia) [facility] Fitting Monofocals (Not For Aphakia) 98378 03/11/20 16 GILMA LOGAN Audiometry Group Testing Audiometry Group Testing 21085 03/11/[address]Supervised Group Educational Services -Supervised Group Educational Services 30640 03/11/20 16 SIN PEDRAZA Threshold Audiogram (Pure Tone) Automated Threshold Audiogram (Pure Tone) Automated 0208T REGINO PATTERSON Patient education, not otherwise cla ified, non-physician provider, individual, per se ion REGINO PATTERSON [facility] Fitting Monofocals (Not For Aphakia) [facility] Fitting Monofocals (Not For Aphakia) 14997 GEORGIE TUCKER Ophthalmological Prior Patient Start Comprehensive Care Ophthalmological Prior Patient Start Comprehensive Care [address]54 DESTINI NANCE Determination Of Refractive State Determination Of Refractive State 96959 DESTINI NANCE Prescription & Fitting Bilateral Corneal Lenses (Not Aphakia Prescription & Fitting Bilateral Corneal Lenses (Not Aphakia 03840 DESTINI NANCE Social History Combined list of available smoking, tobacco, and other social history from Department of Defense and Veterans Affairs facilities. Social History Type Response Date Comment Sourc e Tobacco smoking status NHIS VA-TOBACCO NEVER USED 01/10/2024 [facility] History of tobacco use VA-TOBACCO NEVER USED 09/14/2022 [facility] This section is an empty social history section. DoD
--- OUTSIDE RECORDS SUMMARY | 2025-01-24 10:13 | XMS_ITS | Encounter Summary ---
Author Organization [facility] Address [address] [place] [phone] Phone Care Team Providers Care Band Tumbler Name Role Phone Unavailable Primary Care Provider Unavailabl e Encounter Details Date Type Department Care Team (Late st Contact Info) Description 07/19/2015 Documentation [facility] [address] [place] [address] Family Medicine, Physician [facility] [place], [place] [id number] Social History Tobacco Use Types Packs/Day Years Used Date Smoking Tobacco: Never Comments:Never smoker Sex and Gender Information Value Date Recorded Sex Assigned at Not on file Legal Sex Male 4:58 PM EDT Gender Identity Not on file Sexual Orientation Not on file documented as of this encounter Plan of Treatment Not on file documented as of this encounter Visit Diagnoses Not on filedocumented in this encounter
--- OUTSIDE RECORDS SUMMARY | 2025-01-24 10:13 | XMS_ITS | Clinical Summary ---
Author Organization [facility] Address [address] [address] Phone Care Team Providers Care Mud Worker Name Role Phone Unknown, Unknown Primary Care Provider Faby english Allergies No known active allergies Medications No known medications Active Problems No known active problems Immunizations Immunization Administration Dates Next Due DTaP 02/09/2002, 0,1998,05/24,1998 HPV,quadrivalent 07/03/2014,02/15/2013 HPV9 02/19/2015 Hepatitis A, ped/adol, 2 dose 02/15/2013, 010 Hepatitis B 1998,1998,1998 Hib,PRP-T 01/21/1999, 9,1998,03/18 IPV 02/21/2002, 9,1998,03/18 Influenza Quadrivalent w/ Pr eservative IM 07/03/2014 MMR 02/09/2002,08/06/1999 Meningococcal MCV4P 02/19/2015,02/15/2013 Tdap 09/06/2020,03/04/2010 Varicella 03/04/2010,01/21/1999 Family History Relation Status Comments Brother Alive Father Maternal Grandfather Maternal Grandmother Mother Alive Paternal Grandfather Paternal Grandmother Social History Tobacco Use Types Packs/Day Years Used Date Smoking Tobacco: Never Smokeless Tobacco: Never Alcohol Use Standard Drinks/Week Comments Yes 0 (1 standard drink = 0.6 oz pur e alcohol) socially Education Answer Date Recorded Are you interested in more education? Not on susan e 10/30/2022 Are you concerned about learning? Not on file 10/30/2022 No 10/30/2022 No 10/30/2022 Digital Access Answer Date Recorded No 11/28/2022 No 11/28/2022 No 11/28/2022 Reliable internet access at home? Not on file 11/28/2022 Device with a working camera? Not on file Sex and Gender Information Value Date Recorded Sex Assigned at Not on file Legal Sex Male 9:17 AM EST Gender Identity Not on file Sexual Orientation Not on file Last Filed Vital Signs Vital Sign Reading Time Taken Comments Blood Pressure 128/82 09/06/2020 10:02 AM EST Pulse 86 09/06/2020 10:02 AM EST Temperature 36.3 C (97.3 F) 09/06/2020 10:02 AM EST Respiratory Rate - - Oxygen Saturation 98% 09/06/2020 10:02 AM EST Inhaled Oxygen Concentration - - Weight 98 kg (216 lb) 09/06/2020 10:02 AM EST Height - - Body Mass Index - - Plan of Treatment Health Maintenance Due Date Last Done Comments HEPATITIS C SCREENING 01/13/2016 HIV ONE-TIME SCREENING (18-65 YEARS) 01/13/2016 DEPRESSION SCREENING 09/06/2021 09/06/2020 SMOKING STATUS SCREENING (Once After 26 Yrs) 01/13/2024 COVID-19 VACCINE ( season) 2024 05/06/2021 Adult Td,Tdap Booster 09/06/2030 09/06/2020, 010 HIB VACCINES Completed 01/21/1999, 07/06, 1998, Additional history exists HEPATITIS A VACCINES Completed 02/15/2013, 03/04/20 10 MENINGOCOCCAL VACCINES (ACWY) Completed 02/19/2015, 02/15/2013 MENINGOCOCCAL VACCINES (B) Aged Out N o longer eligible based on patient's age to complete this topic PNEUMOCOCCAL VACCINES (0-49 years) Aged Out No longer eligible based on patient's age to complete this topic Medical Devices Not on file Insurance [employer] Jose Enrique [place] [id number] [facility] [place] [address] [facility] [place] [address] [facility] [place] [address] [facility] [place] [address] [facility] [place] [address] [facility] Care Teams Mud Worker Relationship Specialty Start Date End Date Unknown, Unknown, PCP - General 05/17/23 Additional Source Comments The information contained in this document represents components of the legal health record. It is not the complete legal health record.[facility]
== END 2025-01-24 10:27 | disposition home or self-care (01) ==
LOC: HO.HOS 09:39
PROVIDERS: Visit Provider Physician Assistant
DX: S83.429A Sprain of lateral collateral ligament of unspecified knee, initial encounter (principal)
CPT/HCPCS: 99213; G2211

== ENCOUNTER → 2025-01-24 09:39 | Outpatient (BNVA) | payer OTHER, SELFPAY | PROVIDERS: Visit Provider Physician Assistant | DX: S83.421A Sprain of lateral collateral ligament of right knee, initial encounter (principal) | CPT/HCPCS: 99212 ==

== ENCOUNTER 2025-02-14 14:06 | Outpatient (RCR) | payer OTHER, SELFPAY ==
--- NOTE | 2024-12-13 09:44 | MHC.PT.EP ---
[facility] [place] Office [place] Office [place] Office [address] Radha Watkins [address] [phone] F: [phone] F: [phone] F: [phone] F: [phone] Physical Therapy Plan of Care Date of Evaluation: 12/13/24 Date of Surgery: Diagnosis: R knee internal derangement Assessment: 24 y/o male referred to PT with R knee internal derangement from work connection. 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 Examination shows increased pain lateral R knee and joint line, poor proximal fibular head mobility, decreased strength decreased tibial IR, pain, and impaired gait pattern. S/s consistent with R knee internal derangement and ? proximal fibular involvement. Will benefit from PT to address impairments, implement hEP, and optimize functional mobility. Frequency and Duration: The patient will be seen 2x/week for 5 weeks Short Term Goals: 3 weeks I with HEP Knee ROM 0-120 Half-Way Goals: 5 weeks I with HEP and self management of sx Pt will be able to ascend/ descend stairs withotu rail and pain < 3/10 Pt will improve LEFS to > 40/80 (IR 26/80) Treatment Plan: Modalities to reduce pain, spasms and effusion. Manual therapy to restore motion and function. Therapeutic exercise to improve strength and flexibility. Neuromuscular re-education for posture and balance. Therapeutic activities to return to functional activities of daily living. Electronically signed by: Shyla Gupta PT Please sign and return to therapist. Thank you for your referral.
--- NOTE | 2025-01-31 11:31 | MHC.PT.RE ---
[facility] [place] Office [place] [facility] [place] Office [address] Radha Watkins [address] [phone] F: [phone] F: [phone] F: [phone] F: [phone] Physical Therapy Re-evaluation Diagnosis: R knee internal derangement Date of Surgery: 12/07/24 - injury Date of Evaluation: 12/13/24 Treatments to Date: 9 Cancellations to Date: 0 No Shows to Date: 0 Subjective: Reports feeling 70% better since starting PT, however still has difficulty with squatting, running/ jogging, crawling, and heavy lifting. Has not RTW full duty or hobbies such as difficult hikes and heavy resistance training Pain Score: 0 Pain Location: R lateral knee. joint line Objective Measures: -8 weeks 02-01-25 Knee ROM: 3-0-130 Strength: hip ER/IR 4+/5, Hip abduction 4+/5, quads 4+/5, HS 4+/5, HS length WNL squat: still unable to squat past 45* at without increase in pain and tightness small hopping: noted valgus moment at knee with impact and cues needed for soft knees and alignment Assessment: At this time, he is reporting feeling 70% better since starting PT with less pain with walking, stairs, bending, and ligth resistance. However he has not been able to perform higher level tasks that he needs for his work as well as his hobbies such as running, jogging, heavy lifting, hiking, and squatting greater than 25% depth. His knee ROM and isometric strength has improved however squat depth has only minimally improved. Gait pattern is WNL. He would benefit from continued PT 2x/week for 3 more weeks to progress more dynamic exercises and return to running to decrease injury risk with RTW and higher level tasks in daily life. He is very motivated and compliant with HEP. 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 Mild pain reporting anterior knee with bear plank position Short Term Goals: STG's Met Custodial Goals: 5 weeks I with HEP and self management of sx Pt will be able to ascend/ descend stairs withotu rail and pain < 3/10 - MET Pt will improve LEFS to > 40/80 (IR 26/80) - MET 51/80 PT will improve LEFS to >60/80 (IR 51/80) pt will be able to jog/walk >10 min with knee pain < 3/10 Frequency and Duration: The patient will be seen 2x/week for 3 more weeks Treatment Plan: Therapeutic Exercise Dynamic Therapeutic Activities Neuromuscular Re-ed Manual Therapies Taping Gait Home Exercise Program Patient Education Hot or Cold Pack Reviewed/ Agreed with Student Documentation: Therapist: Electronically signed by: Shyla Gupta PT Please sign and return to therapist. Thank you for your referral.
--- NOTE | 2025-03-08 14:53 | MHC.PT.DC ---
[facility] [place] Office [place] Office [place] Office [address] Radha Watkins [address] [phone] F: [phone] F: [phone] F: [phone] F: [phone] Physical Therapy Discharge Report Diagnosis: R knee internal derangement Date of Surgery: 12/07/24 - injury Date of Evaluation: 12/13/24 Date of Discharge: 03/08/25 Treatments to Date: 13 Cancellations to Date: 0 No Shows to Date: 0 Discharge Status: Improved Function Independent with HEP Discharge Summary: Pt made good progress and was able to perform progressively more resistance and dynamic tasks without pain or compensatory movements. He ascends/descends stairs in reciprocal pattern without stairs. He has just started jog/walk program as well. 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 At this time, pt appropriate for d/c to [facility] Electronically signed by: Shyla Gupta PT Please sign and return to therapist. Thank you for your referral.
== END 2025-03-08 14:54 | disposition home or self-care (01) ==
LOC: HO.PT 14:06
PROVIDERS: Visit Provider Internal Medicine
DX: M23.91 Unspecified internal derangement of right knee (principal); S83.421D Sprain of lateral collateral ligament of right knee, subsequent encounter
CPT/HCPCS: 97035; 97110; 97140; 97161; 97530